=== PATIENT | male | born 1950 | race Caucasian/White ===

== ENCOUNTER → 2016-12-29 | Outpatient (CLI) | payer MEDICARE, BC ==
[~2016-12-29] VITALS: Ht 182.9 cm; Wt 85.1 kg
[~2016-12-29] MED LIST: BUSP15TA PO; CHLORHEXIDINE GLUCONATE 2 % 1 PACK (2 CLOTHS) TOPICAL PRN; DEXTROSE 5% IN WATE 1000ML INJ 1,000 ML IV SCH; DO NOT ADM ANY ANTICOAGULANT DRUGS PRN; INSULIN HUMAN REGULAR 1,000 UNITS/10 ML VIAL SQ PRN; LACTATED RINGER'S 1000 ML IV PRN; LACTCAP8 PO; LISI-515 PO; METOPROLOL TARTRATE 25 MG TAB PO PRN; MIRA3350 PO; POVIDONE IODINE 5% (ANTISEPSIS KIT) 4 APPLICATIONS EACH NARE PRN; PROPOFOL 200 MG/20 ML AMP IV PUSH ONE; SODIUM CHLORID 0.9% 500 ML IV PRN; ZOLO100T PO; [UNRECOGNIZED DRUG - CODE] PO
[2016-12-29 10:33] VITALS: BP 162/83; PULSE 52; RESP 18; TEMP 98.2; O2SAT 99
--- NOTE | 2016-12-29 11:48 | PD.HP.UP ---
H&P Update Note The Pre-Admit History and Physical Examination regarding the above named patient was reviewed (including, but not limited to, vital signs, heart, lungs, co-morbid conditions), and upon re-examination it is noted that: the patient's condition has not significantly changed since the last examination. Lenny Thompson MD Dec 29, 2016 11:48
--- NOTE | 2016-12-29 11:54 | EKG ---
Date Performed: 12/29/2016 Time Performed: 10:11:44 PTAGE: 66 years EKG: SINUS BRADYCARDIA WITH OCCASIONAL VENTRICULAR PREMATURE COMPLEXES BORDERLINE ECG NO PREVIOUS TRACING DOCTOR: Desmond Almodovar Interpretating Date/Time 12/29/2016 11:52:44
[2016-12-29 13:05] VITALS: BP 185/94; PULSE 50; RESP 16; TEMP 97.5; O2SAT 100
--- NOTE | 2016-12-29 16:54 | RADRPT ---
EXAM DATE/TIME: 12/29/2016 00:00 [facility] COMPARISON: No previous studies available for comparison. INDICATIONS : Colonic stent placement MEDICAL HISTORY : Carcinoma, colon. SURGICAL HISTORY : Colostomy. ENCOUNTER: Initial ACUITY: 1 day PAIN SCORE: Non-responsive. LOCATION: Rectum FINDINGS: This single lateral view of the sacrum shows a stent overlying the region of the rectum. Gas filled l oops of nondilated small bowel overlie the lower abdomen on this limited visualization of that area. CONCLUSION: Rectal stent. Feng Renteria Jr., MD on December 29, 2016 at 16:50 Board Certified Radiologist. This report was verified electronically.
--- NOTE | 2017-01-03 13:11 | MR ---
cc: JAKOB REZA M.D. DATE: 12/29/2016 PREOPERATIVE DIAGNOSIS History of rectal cancer, strictured coloanal anastomosis, possible recurrent rectal cancer. PROCEDURE 1. Colonoscopy with decompression of colonic obstruction. 2. Placement of a Wall stent. POSTOPERATIVE DIAGNOSIS History of rectal cancer, strictured coloanal anastomosis, possible recurrent rectal cancer. SURGEON Dr. Reza DETAILS OF PROCEDURE The patient was placed in the left lateral decubitus position. After adequate IV sedation, rectal exam confirmed hardness and thickening of the pelvic floor consistent with his radiation and previous colorectal anastomosis. The Olympus sigmoidoscope was then introduced into the rectum and advanced easily to the area of the anastomosis which was found to be very stenotic and small in caliber. With gentle pressure the scope was able to pass through the anastomosis but it felt somewhat restricted. When the scope passed into the proximal bowel quite a bit of liquid stool and gas were relieved and the abdomen visibly decompressed. The scope passed up through the proximal colon noting no other inflammatory changes or obstructions throughout the colon. The scope was therefore withdrawn, visualizing the area of the anastomosis which was quite long and narrowed, somewhat irregular, but no gross tumor was seen along the mucosa. Under direct vision a 22 x 90 Wall stent was placed across the lesion, first under direct vision and then upon withdrawal with confirmation using fluoroscopy. After deployment the stent was repositioned and felt to be in good position. Fairly significant colonic decompression was noted with expression of air and stool through the stent and the anal canal. The stent was easily palpable on rectal examination. The patient tolerated the procedure quite well and was brought to the recovery room in stable condition. MD DEE Knott/MAGUE /8:00 PM /1:01 PM
== END ==
LOC: HSDC 09:44
PROVIDERS: ATTEND Colon & Rectal Surgery
DX: K56.69 Other intestinal obstruction (principal); K63.89 Other specified diseases of intestine; Z85.048 Personal history of other malignant neoplasm of rectum, rectosigmoid junction, and anus; Z01.810 Encounter for preprocedural cardiovascular examination
CPT/HCPCS: 00810; 45337; 45347; 72220; 76000; 93005; C2625